=== PATIENT | female | born 2000 | race Caucasian/White ===

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

== ENCOUNTER 2022-09-02 23:02 | Emergency (ER) | payer OTHER ==
[2022-09-02 23:11] VITALS: BP 109/78; BMI 19.9
[2022-09-03] MEDS ORDERED: IBUPROFEN 600 MG TABLET (FP) PO ONE (01:33)
[2022-09-03] MEDS ORDERED: IBUPROFEN 400 MG TABLET (FP) PO ONE ×2 (01:34→01:37)
[2022-09-03] MEDS ORDERED: CEPHALEXIN MONOHYDRATE 500 MG CAPSULE (UD) PO ONE (02:01)
[2022-09-03] MEDS ORDERED: CEPHALEXIN MONOHYDRATE 500 MG CAPSULE (UD) ONE (02:07)
[2022-09-03 02:14] VITALS: PULSE 110; RESP 20; TEMP 100.1
== END 2022-09-03 02:14 | disposition home or self-care (01) ==
LOC: JER 23:02
DX: J09.X2 Influenza due to identified novel influenza A virus with other respiratory manifestations (principal)
CPT/HCPCS: 0241U-QW; 71046-TC-FY; 99284-25